=== PATIENT | female | born 1950 | race American Indian/Alaskan Native ===

== ENCOUNTER 2021-09-17 14:40 | Emergency (ER) | payer MEDICARE ==
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
[2021-09-17] MEDS ORDERED: ACETAMINOPHEN 500 MG TAB PO ONE (16:08)
[2021-09-17] MEDS ORDERED: traMADol 50 MG TAB PO ONE (16:42)
[2021-09-17] MEDS ORDERED: ONDANSETRON 4 MG ODT TAB PO ONE (16:43)
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
[2021-09-17 18:42] VITALS: BP 134/85
--- NOTE | 2021-09-18 14:13 | Electrocardiograph Report ---
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
== END 2021-09-17 18:43 | disposition home or self-care (01) ==
LOC: ED 14:40
DX: R07.89 Other chest pain (principal); R07.81 Pleurodynia; I10 Essential (primary) hypertension; E11.8 Type 2 diabetes mellitus with unspecified complications; E78.5 Hyperlipidemia, unspecified; Z88.5 Allergy status to narcotic agent; Z88.8 Allergy status to other drugs, medicaments and biological substances; V89.2XXA Person injured in unspecified motor-vehicle accident, traffic, initial encounter; Y93.89 Activity, other specified; Y92.410 Unspecified street and highway as the place of occurrence of the external cause; Y99.8 Other external cause status
CPT/HCPCS: 71111; 93005; 99283; Q0162

== ENCOUNTER 2021-10-07 08:40 | Emergency (ER) | payer MEDICARE, OTHER ==
[2021-10-07 09:41] VITALS: BP 140/89
[2021-10-07] MEDS ORDERED: MORPHINE 4 MG/1 ML INJ IV ONE ×2 (10:31→13:05)
[2021-10-07] MEDS ORDERED: ONDANSETRON 4 MG/2 ML INJ IV ONE (10:31)
[2021-10-07] MEDS ORDERED: SODIUM CHLORIDE 0.9% 500 ML 500 ML IV ONE (10:32)
[2021-10-07] MEDS ORDERED: TETANUS,DIPH,PERTUSS(ACELL) VACCINE 0.5 ML SYRINGE IM ONE (10:32)
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
[2021-10-07 11:05] LABS: Basophils # (Auto) 0.1 K/mm3 (0.0-0.1); Basophils % (Auto) 0.5 % (0.0-1.8); Eosinophils # (Auto) 0.1 K/mm3 (0.0-0.4); Eosinophils % (Auto) 0.9 % (0.0-4.3); Hematocrit 38.6 % (30.3-42.9); Hemoglobin 12.6 gm/dl (10.1-14.3); Lymphocytes % (Auto) 26.6 % (13.4-35.0); Mean Corpuscular HGB Conc 33 % (30-34); Mean Corpuscular Volume 93 fl (79-97); Monocytes # (Auto) 1.1 K/mm3 (0.0-0.8); Monocytes % (Auto) 9.8 % (0.0-7.3); Platelet Count 304 K/mm3 (140-440); Red Blood Count 4.14 M/mm3 (3.65-5.03); Red Cell Distribution Width 13.8 % (13.2-15.2)
[2021-10-07 11:19] LABS: INR 0.96 (0.87-1.13)
[2021-10-07 11:24] LABS: Alanine Aminotransferase 53 units/L (7-56); Albumin 4.2 g/dL (3.9-5); Blood Urea Nitrogen 13 mg/dL (7-17); Calcium 10.1 mg/dL (8.4-10.2); Hemolysis Index 27
[2021-10-07 11:26] LABS: BUN/Creatinine Ratio 22
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
[2021-10-07 12:10] LABS: Bilirubin,Urine NEG (Negative); Blood,Urine SM (Negative); Color,Urine Straw (Yellow); Protein,Urine <15 mg/dL mg/dL (Negative); Urobilinogen,Urine < 2.0 mg/dL (<2.0); WBC,Urine < 1.0 /HPF (0.0-6.0)
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
[2021-10-07] MEDS ORDERED: LACTATED RINGERS 500 ML IV ONE (13:50)
[2021-10-07] MEDS ORDERED: ACETAMINOPHEN 325 MG TAB PO ONE (13:50)
--- NOTE | 2021-10-08 10:40 | Electrocardiograph Report ---
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
== END 2021-10-07 17:42 | disposition home or self-care (01) ==
LOC: ED 08:40
DX: S22.39XA Fracture of one rib, unspecified side, initial encounter for closed fracture (principal); S80.812A Abrasion, left lower leg, initial encounter; R07.9 Chest pain, unspecified; R10.10 Upper abdominal pain, unspecified; M79.605 Pain in left leg; M54.2 Cervicalgia; Z88.5 Allergy status to narcotic agent; Z88.6 Allergy status to analgesic agent; I10 Essential (primary) hypertension; E11.8 Type 2 diabetes mellitus with unspecified complications; V89.2XXA Person injured in unspecified motor-vehicle accident, traffic, initial encounter; Y93.89 Activity, other specified; Y92.89 Other specified places as the place of occurrence of the external cause; Y99.8 Other external cause status
CPT/HCPCS: 36415; 70450; 71260; 72125; 73590; 74177; 80053; 81001; 82550; 83690; 83735; 84484; 85025; 85610; 90715; 93005; 96361; 96374; 96375; 96376; 99285; J2270; J2405; J7040; J7120; Q9967; J3490